=== PATIENT | female | born 2005 | race African-American/Black ===

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

== ENCOUNTER 2023-05-07 13:02 | Emergency (ER) | payer MEDICAID, OTHER ==
[~2023-05-07] VITALS: Ht 154.9 cm; Wt 74.5 kg
[2023-05-07 15:28] LABS: CHLAMYDIA DNA AMPLIFICATION NEGATIVE (NEGATIVE); GC DNA AMPLIFICATION NEGATIVE (NEGATIVE)
[2023-05-07 15:50] VITALS: TEMP 97.2
[2023-05-07 16:50] VITALS: BP 145/81; O2SAT 98
[2023-05-07] MEDS ORDERED: FLUC150T9 PO (17:36)
[2023-05-07] MEDS ORDERED: METR-265 PO (17:36)
== END 2023-05-07 17:57 | disposition home or self-care (01) ==
LOC: M ED 13:02
DX: B37.31 Acute candidiasis of vulva and vagina (principal)